=== PATIENT | male | born 1990 | race Caucasian/White ===

== ENCOUNTER 2017-11-26 16:07 | Emergency (ER) | payer OTHER ==
[2017-11-26 16:18] VITALS: BP 157/94; PULSE 82; RESP 18; TEMP 98.4
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
--- NOTE | 2017-11-26 17:45 | XR ---
EXAMINATION TYPE: XR forearm LT DATE OF EXAM: 11/26/2017 COMPARISON: NONE HISTORY: Pain TECHNIQUE: 2 views FINDINGS: I see no fracture nor dislocation. Radius and ulna appear intact. IMPRESSION: Negative left forearm exam.
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
--- NOTE | 2017-11-26 17:46 | XR ---
EXAMINATION TYPE: XR chest 1V DATE OF EXAM: 11/26/2017 COMPARISON: NONE HISTORY: Pain TECHNIQUE: Single frontal view of the chest is obtained. FINDINGS: Heart and mediastinum are normal. Lungs are clear. Diaphragm is normal. Bony thorax is int act. There is no sign of pleural effusion or pneumothorax. Ribs appear intact. IMPRESSION: Normal chest
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
== END 2017-11-26 18:21 | disposition home or self-care (01) ==
LOC: EC 16:07
DX: S20.212A Contusion of left front wall of thorax, initial encounter (principal); S40.022A Contusion of left upper arm, initial encounter; F90.9 Attention-deficit hyperactivity disorder, unspecified type; F17.200 Nicotine dependence, unspecified, uncomplicated; Z79.899 Other long term (current) drug therapy; V49.49XA Driver injured in collision with other motor vehicles in traffic accident, initial encounter; Y92.410 Unspecified street and highway as the place of occurrence of the external cause
CPT/HCPCS: 71045; 99284

== ENCOUNTER 2019-05-03 11:44 | Emergency (ER) | payer OTHER ==
[2019-05-03 12:01] VITALS: BP 144/92; PULSE 79; RESP 19; TEMP 98.4
[2019-05-03] MEDS ORDERED: LIDOCAINE 1% INJ 10MG/ML (20 ML MDV) SQ ONE (12:10)
--- NOTE | 2019-05-03 12:23 | ED ---
Skin/Abscess/FB HPI - General Chief complaint: Skin/Abscess/Foreign Body Stated complaint: Abcess under armpit and lump on head Time Seen by Provider: 05/03/19 12:07 Source: patient, RN notes reviewed Mode of arrival: ambulatory Limitations: no limitations - History of Present Illness Initial comments: 29-year-old male presents emergency Department chief complaint of right armpit abscess. Patient states this started last few days. Patient states that this in the past is very painful unalleviated with ibuprofen. Patient states he has a lump on the left side of his posterior scalp, neck pain region which has been there for a long period. Patient reports no visual changes, neck stiffness, fevers or chills. - Related Data Home Medications Medication Instructions Recorded Confirmed Dextroamphetamine/Amphetamine 20 mg PO BID 04/01/14 04/01/14 [Adderall] Previous Rx's Medication Instructions Recorded Ibuprofen [Motrin] 600 mg PO Q8HR PRN #30 tab 11/26/17 Cephalexin [Keflex] 500 mg PO Q6HR #40 cap 05/03/19 Sulfamethox-Tmp 800-160Mg [Bactrim 1 each PO Q12HR #20 tab 05/03/19 Ds] Allergies Allergy/AdvReac Type Severity Reaction Status Date / Time No Known Allergies Allergy Verified 11/26/17 16:18 Review of Systems ROS Statement: Those systems with pertinent positive or pertinent negative responses have been documented in the HPI. ROS Other: All systems not noted in ROS Statement are negative. Past Medical History Past Medical History: No Reported History History of Any Multi-Drug Resistant Organisms: None Reported Additional Past Surgical History / Comment(s): PE TUBES Past Psychological History: ADD/ADHD Smoking Status: Current every day smoker Past Alcohol Use History: Rare Past Drug Use History: None Reported General Exam Limitations: no limitations General appearance: alert, in no apparent distress Head exam: Present: atraumatic, normocephalic. Absent: normal inspection (At the base of the scalp there is a 1 cm firm nonfluctuant cyst) Eye exam: Present: normal appearance, PERRL, EOMI. Absent: scleral icterus, conjunctival injection, periorbital swelling ENT exam: Present: normal exam, normal oropharynx, mucous membranes moist Neck exam: Present: normal inspection, full ROM. Absent: tenderness, meningismus, lymphadenopathy Respiratory exam: Present: normal lung sounds bilaterally. Absent: respiratory distress, wheezes, rales, rhonchi, stridor Cardiovascular Exam: Present: regular rate, normal rhythm, normal heart sounds. Absent: systolic murmur, diastolic murmur, rubs, gallop, clicks Extremities exam: Present: other (Right axilla there is a 1 cm fluctuant erythematous abscess) Skin exam: Present: warm, dry, intact Course Vital Signs 05/03/19 12:00 Temperature 98.4 F Pulse Rate 79 Respiratory 19 Rate Blood Pressure 144/92 O2 Sat by Pulse 97 Oximetry Procedures - Incision & Drainage Consent Obtained: verbal consent Site: scalp, other (Right axilla) Size (cm): 1 Anesthetic Used: lidocaine 1%, without epi Amount (mLs): 6 I&D Cleaning Method: Chloroprep Sterile Field Used?: No Scalpel Used: #11 Needle Aspiration Performed?: No Irrigation Performed?: No I&D Drainage Obtained: Pus, Blood Culture Obtained?: Yes Patient Tolerated Procedure: well, no complications Medical Decision Making - Medical Decision Making 29-year-old male presented for abscess to his right axilla this was I&D with no comp patients patient will be discharged on antibiotics return parameters were discussed. Disposition Clinical Impression: Abscess of axilla, right Disposition: HOME SELF-CARE Condition: Stable Instructions (If sedation given, give patient instructions): Abscess Incision and Drainage (ED) Additional Instructions: Please return to the Emergency Department if symptoms worsen or any other concerns. Prescriptions: Sulfamethox-Tmp 800-160Mg [Bactrim Ds] 1 each PO Q12HR #20 tab Cephalexin [Keflex] 500 mg PO Q6HR #40 cap Is patient prescribed a controlled substance at d/c from ED?: No Referrals: Ponce Melara [Primary Care Provider] - 1-2 days Time of Disposition: 12:48
[2019-05-03] MEDS ORDERED: ACET/COD 300 MG/30 MG STARTER PACK 6 TAB BTL PO STA (12:54)
== END 2019-05-03 12:56 | disposition home or self-care (01) ==
LOC: EC 11:44
DX: L02.411 Cutaneous abscess of right axilla (principal); L72.9 Follicular cyst of the skin and subcutaneous tissue, unspecified; F90.9 Attention-deficit hyperactivity disorder, unspecified type; F17.200 Nicotine dependence, unspecified, uncomplicated; Z79.899 Other long term (current) drug therapy
CPT/HCPCS: 87070; 87205; 99283; 10060; J2001

== ENCOUNTER 2024-06-06 07:05 | Emergency (ER) | payer OTHER ==
[2024-06-06 07:25] VITALS: BP 139/86; PULSE 73; RESP 17; TEMP 97.7
--- NOTE | 2024-06-06 07:38 | ED ---
ENT HPI - General Chief complaint: ENT Stated complaint: ear & neck pain Time Seen by Provider: 06/06/24 07:13 Source: patient, RN notes reviewed Mode of arrival: ambulatory Limitations: no limitations - History of Present Illness Initial comments: 34-year-old male presents emergency department chief complaint of left ear pain, throat pain. Patient was seen here approximate week ago was diagnosed with RSV states he is feeling better the pain is increasing his left ear over the last 2 days difficulty here at this. Patient denies any fevers states cough is improving congestions improving otherwise. - Related Data Home Medications Medication Instructions Recorded Confirmed Dextroamphetamine/Amphetamine 20 mg PO BID 04/01/14 04/01/14 [Adderall] Previous Rx's Medication Instructions Recorded Ibuprofen [Motrin] 600 mg PO Q8HR PRN #30 tab 11/26/17 Cephalexin [Keflex] 500 mg PO Q6HR #40 cap 05/03/19 Sulfamethox-Tmp 800-160Mg [Bactrim 1 each PO Q12HR #20 tab 05/03/19 Ds] Amoxic-Pot Clav 875-125Mg 1 tab PO Q12HR #20 tab 06/06/24 [Augmentin 875-125] predniSONE 50 mg PO DAILY #5 tab 06/06/24 Allergies Allergy/AdvReac Type Severity Reaction Status Date / Time No Known Allergies Allergy Verified 06/06/24 07:25 Review of Systems ROS Statement: Those systems with pertinent positive or pertinent negative responses have been documented in the HPI. ROS Other: All systems not noted in ROS Statement are negative. Past Medical History Past Medical History: No Reported History History of Any Multi-Drug Resistant Organisms: None Reported Additional Past Surgical History / Comment(s): PE TUBES Past Psychological History: ADD/ADHD Smoking Status: Vaper Past Alcohol Use History: Rare Past Drug Use History: None Reported General Exam Limitations: no limitations General appearance: alert, in no apparent distress Head exam: Present: atraumatic, normocephalic, normal inspection Eye exam: Present: normal appearance, PERRL, EOMI. Absent: scleral icterus, conjunctival injection, periorbital swelling ENT exam: Present: normal oropharynx, mucous membranes moist. Absent: TM's normal bilaterally (TM erythematous, bulging fluid noted) Neck exam: Present: normal inspection, full ROM. Absent: tenderness, meningismus, lymphadenopathy Respiratory exam: Present: normal lung sounds bilaterally. Absent: respiratory distress, wheezes, rales, rhonchi, stridor Cardiovascular Exam: Present: regular rate, normal rhythm, normal heart sounds. Absent: systolic murmur, diastolic murmur, rubs, gallop, clicks Course Vital Signs 06/06/24 07:21 Temperature 97.7 F Pulse Rate 73 Respiratory 17 Rate Blood Pressure 139/86 O2 Sat by Pulse 98 Oximetry Medical Decision Making - Medical Decision Making Was pt. sent in by a medical professional or institution ([facility], [employer] [employer], urgent care, hospital, or care home...) When possible be specific @ -No Did you speak to anyone other than the patient for history (EMS, parent, family, police, friend...)? What history was obtained from this source @ -No Did you review nursing and triage notes (agree or disagree)? Why? @ -I reviewed and agree with nursing and triage notes Were old charts reviewed (outside hosp., previous admission, EMS record, old EKG, old radiological studies, urgent care reports/EKG's, care home records)? Report findings @ -No old charts were reviewed Differential Diagnosis (chest pain, altered mental status, abdominal pain women, abdominal pain men, vaginal bleeding, weakness, fever, dyspnea, syncope, headache, dizziness, GI bleed, back pain, seizure, CVA, palpatations, mental health, musculoskeletal)? @Otitis media otitis externa eustachian dysfunction RSV influenza EKG interpreted by me (3pts min.). @ -None X-rays interpreted by me (1pt min.). @ -None done CT interpreted by me (1pt min.). @ -None done U/S interpreted by me (1pt. min.). @ -None done What testing was considered but not performed or refused? (CT, X-rays, U/S, labs)? Why? @ -None What meds were considered but not given or refused? Why? @ -None Did you discuss the management of the patient with other professionals (professionals i.e. [facility] Sorensen, [employer], lab, RT, psych nurse, director of social work, roofer metal, teacher, guest services officer, embedded case manager)? Give summary @ -No Was smoking cessation discussed for >3mins.? @ -No Was critical care preformed (if so, how long)? @ -No Were there social determinants of health that impacted care today? How? (Homelessness, low income, unemployed, alcoholism, drug addiction, transportation, low edu. Level, literacy, decrease access to med. care, [facility], rehab)? @ -No Was there de-escalation of care discussed even if they declined (Discuss DNR or withdrawal of care, Hospice)? DNR status @ -No What co-morbidities impacted this encounter? (DM, HTN, Smoking, COPD, CAD, Cancer, CVA, ARF, Chemo, Hep., AIDS, mental health diagnosis, sleep apnea, morbid obesity)? @ -None Was patient admitted / discharged? Hospital course, mention meds given and route, prescriptions, significant lab abnormalities, going to OR and other pertinent info. @ -Discharge patient has left otitis media eustachian tube dysfunction. Patient discharged on Augmentin, steroids return parameters vandana. Undiagnosed new problem with uncertain prognosis? @ -No Drug Therapy requiring intensive monitoring for toxicity (Heparin, Nitro, Insulin, Cardizem)? @ -No Were any procedures done? @ -No Diagnosis/symptom? @ -Otitis media left, eustachian tube dysfunction Acute, or Chronic, or Acute on Chronic? @ -Acute Uncomplicated (without systemic symptoms) or Complicated (systemic symptoms)? @ -Uncomplicated Side effects of treatment? @ -No Exacerbation, Progression, or Severe Exacerbation? @ -No Poses a threat to life or bodily function? How? (Chest pain, [place], [place], pneumonia, PE, COPD, DKA, ARF, appy, cholecystitis, CVA, Diverticulitis, Homicidal, Suicidal, threat to staff... and all critical care pts) @ -No Disposition Clinical Impression: Otitis media, left, Eustachian tube dysfunction Disposition: HOME SELF-CARE Condition: Stable Instructions (If sedation given, give patient instructions): Earache (ED) Additional Instructions: Please return to the Emergency Department if symptoms worsen or any other concerns. Prescriptions: Amoxic-Pot Clav 875-125Mg [Augmentin 875-125] 1 tab PO Q12HR #20 tab predniSONE 50 mg PO DAILY #5 tab Is patient prescribed a controlled substance at d/c from ED?: No Referrals: None,Stated [Primary Care Provider] - 1-2 days Time of Disposition: 07:38
[2024-06-06] MEDS: IBUPROFEN 600 MG TAB PO STA (07:40)
== END 2024-06-06 07:45 | disposition home or self-care (01) ==
LOC: EC 07:05
DX: H69.92 Unspecified Eustachian tube disorder, left ear (principal); H66.92 Otitis media, unspecified, left ear; F17.290 Nicotine dependence, other tobacco product, uncomplicated
CPT/HCPCS: 99283